=== PATIENT | female | born 1990 | race Caucasian/White ===

== ENCOUNTER → 2021-12-16 | Outpatient (REF) | payer BC | LOC: M SFHCWAGY 10:08 | PROVIDERS: ATTEND Advanced Practice Midwife | DX: Z12.4 Encounter for screening for malignant neoplasm of cervix (principal); R87.610 Atypical squamous cells of undetermined significance on cytologic smear of cervix (ASC-US) | CPT/HCPCS: 87624; G0123 ==

== ENCOUNTER → 2022-06-13 | Outpatient (CLI) | payer BC | LOC: M WHC 12:07 | PROVIDERS: ATTEND Advanced Practice Midwife | DX: N63.22 Unspecified lump in the left breast, upper inner quadrant (principal) ==

== ENCOUNTER → 2022-06-28 | Outpatient (REF) | LOC: M LABSMTC 10:09 | PROVIDERS: ATTEND Family Medicine | DX: Z11.52 Encounter for screening for COVID-19 (principal) ==

== ENCOUNTER → 2023-01-18 | Outpatient (REF) | payer BC ==
[~2023-01-18] MED LIST: TRAZ-252 PO
== END ==
LOC: M PLALAB 16:22
PROVIDERS: ATTEND Advanced Practice Midwife
DX: Z12.4 Encounter for screening for malignant neoplasm of cervix (principal); Z87.42 Personal history of other diseases of the female genital tract; R87.810 Cervical high risk human papillomavirus (HPV) DNA test positive
CPT/HCPCS: 87624; G0123

== ENCOUNTER → 2023-03-01 | Outpatient (REF) | payer BC | LOC: M PLALAB 16:33 | PROVIDERS: ATTEND Advanced Practice Midwife | DX: R87.610 Atypical squamous cells of undetermined significance on cytologic smear of cervix (ASC-US) (principal); R87.810 Cervical high risk human papillomavirus (HPV) DNA test positive ==

== ENCOUNTER 2023-03-29 07:08 | Day surgery (SDC) | payer BC ==
[~2023-03-29] VITALS: Ht 170.2 cm; Wt 66.2 kg
[2023-03-29] MEDS ORDERED: LR 1,000 ML IV SCH (07:25)
[2023-03-29] MEDS ORDERED: fentaNYL 100 MCG/2 ML INJECTION As Ordered ONE (07:38)
[2023-03-29] MEDS ORDERED: MIDAZOLAM INJ 2MG/2ML VIAL As Ordered ONE (07:38)
[2023-03-29] MEDS ORDERED: ACETAMINOPHEN 1000MG 100ML IV BAG As Ordered ONE (07:40)
[2023-03-29] MEDS ORDERED: KETOROLAC 60MG 2ML VIAL As Ordered ONE (07:41)
[2023-03-29] MEDS ORDERED: LIDOCAINE 2% 100MG/5ML SDV (FOR ANES.) As Ordered ONE (07:41)
[2023-03-29] MEDS ORDERED: ONDANSETRON 4MG 2ML VIAL As Ordered ONE (07:41)
[2023-03-29] MEDS ORDERED: propofoL 200 MG/20 ML VIAL As Ordered ONE ×3 (07:41→09:13)
[2023-03-29] MEDS ORDERED: SILVER NITRATE APPLICATOR (1 = QTY 10) As Ordered ONE (07:45)
[2023-03-29] MEDS ORDERED: LIDOCAINE W/EPINEPHRINE 1% 20ML VIAL As Ordered ONE ×2 (07:45→07:46)
[2023-03-29] MEDS ORDERED: LEVONORGESTREL 52MG (MIRENA) IUD As Ordered ONE (07:46)
[2023-03-29 07:52] LABS: HEMATOCRIT 39.8 % (36.0-47.0); HEMOGLOBIN 13.1 g/dl (12.0-15.5); MEAN CORPUSCULAR HEMOGLOBIN 29.8 pg (27.0-33.0); MEAN CORPUSCULAR HGB CONC 32.9 g/dl (32.0-36.5); MEAN CORPUSCULAR VOLUME 90.7 fl (80.0-96.0); PLATELET COUNT, AUTOMATED 269 10^3/uL (150-450); RED BLOOD COUNT 4.39 10^6/uL (4.00-5.40); WHITE BLOOD COUNT 8.3 10^3/uL (4.0-10.0)
[2023-03-29] MEDS ORDERED: METOCLOPRAMIDE INJ 10MG/2ML VIAL As Ordered ONE (08:17)
[2023-03-29 08:20] LABS: BLOOD UREA NITROGEN 15 MG/DL (9-23); CALCIUM LEVEL 9.5 MG/DL (8.5-10.1); CARBON DIOXIDE LEVEL 27 MMOL/L (20-31); CHLORIDE LEVEL 104 MMOL/L (98-107); CREATININE FOR GFR 0.69 MG/DL (0.55-1.30); GLOMERULAR FILTRATION RATE > 60.0 (>60); GLUCOSE, FASTING 85 MG/DL (60-100); POTASSIUM SERUM 3.7 MMOL/L (3.5-5.1); SODIUM LEVEL 138 MMOL/L (136-145)
[2023-03-29] MEDS ORDERED: ePHEDrine SULFATE 25 MG/5 ML(5MG/ML) SYRINGE As Ordered ONE (08:35)
[2023-03-29 10:09] VITALS: BP 105/62; TEMP 98.7; O2SAT 98
== END 2023-03-29 10:26 | disposition home or self-care (01) ==
LOC: M SDC 07:08
PROVIDERS: ATTEND Obstetrics & Gynecology
DX: N87.0 Mild cervical dysplasia (principal); N72 Inflammatory disease of cervix uteri; Z79.899 Other long term (current) drug therapy
CPT/HCPCS: 36415; 57460; 58300; 58301; 80048; 81025; 85027; 86850; 86900; 86901; 88307; J0131; J1100; J1885; J2250; J2405; J2765; J3010; J7298

== ENCOUNTER → 2023-12-20 | Outpatient (REF) | payer BC | LOC: M SFHCWAGY 17:24 | PROVIDERS: ATTEND Advanced Practice Midwife | DX: Z12.4 Encounter for screening for malignant neoplasm of cervix (principal); Z11.51 Encounter for screening for human papillomavirus (HPV) ==

== ENCOUNTER 2024-04-17 07:36 | Emergency (ER) | payer BC ==
[~2024-04-17] VITALS: Ht 170.2 cm; Wt 68.2 kg
[2024-04-17] MEDS: fentaNYL 100 MCG/2 ML INJECTION IV ONE ×2 (08:19→08:55)
[2024-04-17] MEDS: NS (Normal Saline) 0.9% 1,000 ML IV SCH (08:54)
[2024-04-17] MEDS: propofoL 200 MG/20 ML VIAL IV.PROC PRN (08:58)
[2024-04-17] MEDS: KETOROLAC 30 MG/ML 1ML VIAL IV ONE (09:20)
[2024-04-17] MEDS ORDERED: KETO10TAB PO (09:55)
[2024-04-17] MEDS ORDERED: METH-1164 PO (09:55)
[2024-04-17 10:25] VITALS: BP 113/69; TEMP 98.1; O2SAT 100
== END 2024-04-17 10:34 | disposition home or self-care (01) ==
LOC: M ED 07:36
DX: S43.014A Anterior dislocation of right humerus, initial encounter (principal); X50.0XXA Overexertion from strenuous movement or load, initial encounter; Y92.009 Unspecified place in unspecified non-institutional (private) residence as the place of occurrence of the external cause; Y93.89 Activity, other specified; Y99.9 Unspecified external cause status; Z79.899 Other long term (current) drug therapy
CPT/HCPCS: 23655; 73020; 73030; 93041; 94760; 96374; 99152; 99285; J1885; J3010

== ENCOUNTER → 2024-05-08 | Outpatient (CLI) | payer BC ==
[~2024-05-08] MED LIST changes: +ISOVUE-300 61% 100ML VIAL As Ordered ONE; +KETO10TAB PO; +LIDOCAINE 1% MDV 20ML VIAL As Ordered ONE; +METH-1164 PO; +PROHANCE 279.3MG/ML 5ML VIAL As Ordered ONE
== END ==
LOC: M RAD 13:11
PROVIDERS: ATTEND Orthopaedic Surgery Hand Surgery
DX: M24.411 Recurrent dislocation, right shoulder (principal)
CPT/HCPCS: 23350; 73223; 77002; A9576; Q9967

== ENCOUNTER → 2024-05-23 | Outpatient (CLI) | payer BC ==
[~2024-05-23] MED LIST changes: -ISOVUE-300 61% 100ML VIAL As Ordered ONE; -LIDOCAINE 1% MDV 20ML VIAL As Ordered ONE; -PROHANCE 279.3MG/ML 5ML VIAL As Ordered ONE
== END ==
LOC: M SOG 13:22
PROVIDERS: ATTEND Physician Assistant
DX: M24.411 Recurrent dislocation, right shoulder (principal)

== ENCOUNTER → 2024-07-04 | Outpatient (REF) | payer BC ==
[2024-07-04 13:58] LABS: HEPATITIS B SURFACE ANTIBODY POSITIVE (POSITIVE)
[2024-07-05 14:35] LABS: MUMPS VIRUS IgG ANTIBODY 67.5 AU/mL (>10.99); RUBEOLA IgG ANTIBODY 79.4 AU/mL (>16.49)
== END ==
LOC: M LAB REF 11:53
PROVIDERS: ATTEND Internal Medicine
DX: Z02.89 Encounter for other administrative examinations (principal)